=== PATIENT | female | born 2000 | race Caucasian/White ===

== ENCOUNTER 2020-07-11 11:44 | Emergency (ER) | payer MEDICAID ==
[~2020-07-11] VITALS: Ht 160 cm; Wt 46.7 kg
--- NOTE | 2020-07-11 13:30 | NUR ---
PT HAS BEEN HAVING FEELINGS OF ANX. DEPRESSION. DENIES SI/SA. NO CP OR SOB.
[2020-07-11] MEDS ORDERED: SERTRALINE 50MG TABLET ONE (14:22)
[2020-07-11] MEDS ORDERED: SERTRALINE 50MG TABLET PO ONE (14:30)
--- NOTE | 2020-07-11 14:57 | NUR ---
Patient/Caregiver given discharge instructions and they have confirmed that they understand the instructions. Patient ambulatory with steady gait.
== END 2020-07-11 14:58 | disposition home or self-care (01) ==
LOC: ED 13:21
DX: F32.1 Major depressive disorder, single episode, moderate (principal); F41.1 Generalized anxiety disorder
CPT/HCPCS: 99283

== ENCOUNTER 2020-11-03 20:36 | Emergency (ER) | payer MEDICAID ==
[~2020-11-03] VITALS: Ht 160 cm; Wt 42.4 kg
[2020-11-03 21:00] VITALS: BP 125/82
[2020-11-03] MEDS ORDERED: DIPHENHYDRAMINE 50 MG/ML, 1ML IVPush ONE (21:30)
[2020-11-03] MEDS ORDERED: ONDANSETRON 2MG/ML, 2ML IVPush ONE (21:30)
[2020-11-03] MEDS ORDERED: SODIUM CHLORIDE 0.9% 1,000ML IVBOLUS ONE (21:30)
[2020-11-03] MEDS ORDERED: DIPHENHYDRAMINE 50 MG/ML, 1ML ONE (21:33)
[2020-11-03] MEDS ORDERED: ONDANSETRON 2MG/ML, 2ML ONE (21:33)
[2020-11-03 21:45] LABS: BASOPHILS % (AUTO) 0 % (0-1); EOSINOPHILS % (AUTO) 0 % (1-7); LYMPHOCYTES % (AUTO) 13 % (22-44); MEAN CORPUSCULAR HEMOGLOBIN 30.8 pg (27.0-34.8); MEAN PLATELET VOLUME 8.7 fL (7.4-10.4); MONOCYTES % (AUTO) 4 % (2-9); NEUTROPHILS % (AUTO) 83 % (42-75); PLATELET COUNT 247 x10^3/uL (130-400); RED BLOOD COUNT 4.95 x10^6/uL (3.82-5.3); RED CELL DISTRIBUTION WIDTH 13.2 % (9.6-15.2)
[2020-11-03 21:53] LABS: ALANINE AMINOTRANSFERASE 32 U/L (12-78); ALBUMIN 4.3 g/dL (3.4-5.0); ANION GAP 12 mmol/L (5-15); CALCIUM 9.3 mg/dL (8.5-10.1); CHLORIDE 107 mmol/L (98-107); CREATININE 0.83 mg/dL (0.55-1.02)
[2020-11-03 21:58] LABS: ALKALINE PHOSPHATASE 56 U/L (45-117); TOTAL PROTEIN 8.2 g/dL (6.4-8.2)
[2020-11-03 22:09] LABS: MD SCAN
--- NOTE | 2020-11-03 22:42 | NUR ---
Patient given discharge instructions and they have confirmed that they understand the instructions. Patient ambulatory with steady gait.
== END 2020-11-03 22:44 | disposition home or self-care (01) ==
LOC: ED 22:40
DX: R10.13 Epigastric pain (principal); F12.10 Cannabis abuse, uncomplicated; R11.2 Nausea with vomiting, unspecified; R94.31 Abnormal electrocardiogram [ECG] [EKG]; G43.909 Migraine, unspecified, not intractable, without status migrainosus
CPT/HCPCS: 36415; 80053; 83690; 84703; 85025; 93005; 96361; 96374; 96375; 99284; J1200; J2405; J7030